=== PATIENT | female | born 1955 | race American Indian/Alaskan Native ===

== ENCOUNTER 2020-07-04 18:03 | Emergency (ER) | payer BC ==
[2020-07-04 19:05] LABS: Basophils # (Auto) 0.1 K/mm3 (0.0-0.1); Eosinophils # (Auto) 0.1 K/mm3 (0.0-0.4); Eosinophils % (Auto) 1.2 % (0.0-4.3); Hematocrit 42.5 % (30.3-42.9); Hemoglobin 13.9 gm/dl (10.1-14.3); Lymphocytes # (Auto) 3.1 K/mm3 (1.2-5.4); Lymphocytes % (Auto) 37.5 % (13.4-35.0); Mean Corpuscular HGB Conc 33 % (30-34); Mean Corpuscular Volume 85 fl (79-97); Monocytes # (Auto) 0.9 K/mm3 (0.0-0.8); Monocytes % (Auto) 10.7 % (0.0-7.3); Platelet Count 405 K/mm3 (140-440); Red Blood Count 4.99 M/mm3 (3.65-5.03); Red Cell Distribution Width 14.7 % (13.2-15.2)
[2020-07-04 19:27] LABS: Alanine Aminotransferase 16 units/L (7-56); Albumin 3.9 g/dL (3.9-5); Blood Urea Nitrogen 16 mg/dL (7-17); Calcium 9.5 mg/dL (8.4-10.2); Hemolysis Index 10
[2020-07-04 19:29] LABS: BUN/Creatinine Ratio 23
--- NOTE | 2020-07-04 19:34 | Cat Scan Report ---
CT HEAD WITHOUT CONTRAST INDICATION / CLINICAL INFORMATION: dizziness, HTN urgency. TECHNIQUE: All CT scans at this location are performed using CT dose reduction for ALARA by means of automated e xposure control. COMPARISON: None available. FINDINGS: HEMORRHAGE: No evidence of intracranial hemorrhage or extra-axial fluid collection. EXTRA-AXIAL SPACES: Cortical sulci, sylvian fissures and basilar cisterns have an unremarkable appear ance. VENTRICULAR SYSTEM: The third and lateral ventricles are of normal size and configuration. CEREBRAL PARENCHYMA: Periventricular white matter lucencies noted likely related to the presence of m icrovascular ischemic change. MIDLINE SHIFT OR HERNIATION: There is no mass effect. CEREBELLUM / BRAINSTEM: Mild cerebellar atrophy is demonstrated. Brainstem has an unremarkable appear ance. MIDLINE STRUCTURES:No abnormalities of the pituitary gland or pineal region are identified. INTRACRANIAL VESSELS:No abnormalities are identified on this noncontrast head CT. ORBITS: visualized portions of the orbits have an unremarkable appearance. Incidental note is made of calcified drusen bodies at the optic nerve insertions. SOFT TISSUES of HEAD: No significant abnormality. CALVARIUM: Evaluation of bone windows reveals no abnormalities. PARANASAL SINUSES / MASTOID AIR CELLS: Visualized portions of the paranasal sinuses are free from inf lammatory mucosal disease. Mastoid air cells are normally pneumatized. IMPRESSION: 1. No acute intracranial abnormality. Signer Name: Jorge Dalton MD Signed: 07/04/2020 7:29 PM Workstation Name: [id number]
--- NOTE | 2020-07-05 01:25 | XRay Report ---
CHEST 2 VIEWS, 07/05/2020 12:36 AM INDICATION: Chest pain COMPARISON: None FINDINGS: Support devices: None. Heart: The cardiac silhouette is normal in size. Lungs/pleura: The lungs are clear of focal airspace disease or significant pleural effusion Additional findings: No significant acute abnormality. IMPRESSION: 1. No evidence of acute cardiopulmonary process. Signer Name: Rachel Morillo MD Signed: 07/05/2020 1:21 AM Workstation Name: [id number]
--- NOTE | 2020-07-05 01:36 | Emergency Department Report ---
ED Back Pain/Injury HPI - General Chief Complaint: Dizziness Stated Complaint: DOC SENT/DIZZY Time Seen by Provider: 07/05/20 00:33 Source: patient Limitations: No Limitations - History of Present Illness Initial Comments: Dysphagia [place] female past no history of hypertension and diabetes presents emergency department complaining of fall having some issues with coryza which progressed to a dull throbbing headache which has been responsive to the medication she has been taking [id number] and not associated with occasional lightheadedness with about the episodes of presyncope today. States that she is normally relatively compliant with her medications. No palliative or or provocative factors the symptoms are transient -: Gradual, days(s) Similar Symptoms Previously: Yes Place: home Radiation: none Severity: mild Quality: dull, aching Consistency: constant Improves With: none Worsens With: other Context: other (Stress increased amount of stress due to 6 close persons dying due to COVID-19) Associated Symptoms: denies other symptoms, headaches. denies: weakness, numbness, incontinence, constipation, syncope - Related Data Previous Rx's Medication Instructions Recorded Last Taken Type traMADoL [Ultram] 50 mg PO Q4HR PRN #14 tablet 07/05/20 Unknown Rx Allergies Allergy/AdvReac Type Severity Reaction Status Date / Time Penicillins AdvReac Itching Verified 07/04/20 18:18 Sulfa (Sulfonamide AdvReac Angioedema Verified 07/04/20 18:18 Antibiotics) ED Review of Systems ROS: Stated complaint: DOC SENT/DIZZY Other details as noted in HPI Comment: All other systems reviewed and negative ED Past Medical Hx - Past Medical History Previous Medical History?: No - Surgical History Past Surgical History?: No - Social History Smoking Status: Never Smoker Substance Use Type: None - Medications Home Medications: Home Medications Medication Instructions Recorded Confirmed Last Taken Type traMADoL [Ultram] 50 mg PO Q4HR PRN #14 tablet 07/05/20 Unknown Rx ED Physical Exam - General Limitations: No Limitations General appearance: alert, in no apparent distress - Head Head exam: Present: atraumatic, normocephalic, normal inspection - Eye Eye exam: Present: normal appearance, PERRL, EOMI, nystagmus Pupils: Present: normal accommodation - ENT ENT exam: Present: normal exam, normal orophraynx, mucous membranes moist - Neck Neck exam: Present: normal inspection, full ROM - Respiratory Respiratory exam: Present: normal lung sounds bilaterally. Absent: respiratory distress, wheezes, rales, prolonged expiratory - Cardiovascular Cardiovascular Exam: Present: regular rate, normal rhythm. Absent: systolic murmur, diastolic murmur, rubs, gallop - GI/Abdominal GI/Abdominal exam: Present: soft, normal bowel sounds - Extremities Exam Extremities exam: Present: normal inspection, normal capillary refill - Back Exam Back exam: Present: normal inspection. Absent: CVA tenderness (R), CVA tenderness (L), vertebral tenderness - Neurological Exam Neurological exam: Present: alert, oriented X3, CN II-XII intact, normal gait, reflexes normal. Absent: motor sensory deficit - Psychiatric Psychiatric exam: Present: normal affect, normal mood - Skin Skin exam: Present: warm, dry, intact, normal color. Absent: rash ED Course Vital Signs 07/04/20 18:14 Temperature 98.3 F Pulse Rate 74 Respiratory 18 Rate Blood Pressure 201/103 O2 Sat by Pulse 95 Oximetry ED Medical Decision Making - Lab Data Result diagrams: 07/04/20 18:51 07/04/20 18:51 - Radiology Data Radiology results: report reviewed [address] [address] XRay Report Signed Patient: GERA MENDEZ MR# : [id number] : 1955 Acct:[id number] Age/Sex: 65 / F ADM Date: 07/04/20 Loc: ED Attending Dr: Ordering Physician: DEB MANE Date of Service: 07/05/20 Procedure(s): XR chest routine 2V Accession Number(s): [id number] cc: DEB MANE Fluoro Time In Minutes: CHEST 2 VIEWS, 07/05/2020 12:36 AM INDICATION: Chest pain COMPARISON: None FINDINGS: Support devices: None. [address] [address] Cat Scan Report Signed Patient: GERA MENDEZ MR# : [id number] : 1955 Acct:[id number] Age/Sex: 65 / F ADM Date: 07/04/20 Loc: ED Attending Dr: Ordering Physician: DEB BOWSER Date of Service: 07/04/20 Procedure(s): CT head/brain wo con Accession Number(s): [id number] cc: DEB BOWSER CT HEAD WITHOUT CONTRAST INDICATION / CLINICAL INFORMATION: dizziness, HTN urgency. TECHNIQUE: All CT scans at this location are performed using CT dose reduction for ALARA by means of automated exposure control. COMPARISON: None available. FINDINGS: HEMORRHAGE: No evidence of intracranial hemorrhage or extra-axial fluid collection. EXTRA-AXIAL SPACES: Cortical sulci, sylvian fissures and basilar cisterns have an unremarkable ap pearance. VENTRICULAR SYSTEM: The third and lateral ventricles are of normal size and configuration. CEREBRAL PARENCHYMA: Periventricular white matter lucencies noted likely related to the presence of microvascular ischemic change. MIDLINE SHIFT OR HERNIATION: There is no mass effect. CEREBELLUM / BRAINSTEM: Mild cerebellar atrophy is demonstrated. Brainstem has an unremarkable appearance. MIDLINE STRUCTURES:No abnormalities of the pituitary gland or pineal region are identified. INTRACRANIAL VESSELS:No abnormalities are identified on this noncontrast head CT. ORBITS: visualized portions of the orbits have an unremarkable appearance. Incidental note is made of calcified drusen bodies at the optic nerve insertions. SOFT TISSUES of HEAD: No significant abnormality. CALVARIUM: Evaluation of bone windows reveals no abnormalities. PARANASAL SINUSES / MASTOID AIR CELLS: Visualized portions of the paranasal sinuses are free from inflammatory mucosal disease. Mastoid air cells are normally pne umatized. IMPRESSION: 1. No acute intracranial abnormality. Signer Name: Jorge Dalton MD Signed: 07/04/2020 7:29 PM Workstation Name: [id number] Transcribed By: Dictated By: Jorge Dalton MD Electronically Authenticated By: Jorge Dalton MD Signed Date/Time: 07/04/201928 DD/ 25 TD/TT: Heart: The cardiac silhouette is normal in size. Lungs/pleura: The lungs are clear of focal airspace disease or significant pleural effusion Additional findings: No significant acute abnormality. IMPRESSION: 1. No evidence of acute cardiopulmonary process. Signer Name: Rachel Morillo MD Signed: 07/05/2020 1:21 AM Workstation Name: [id number] Transcribed By: EB Dictated By: Rachel Morillo MD Electronically Authenticated By: Rachel Morillo MD Signed Date/Time: 07/05/20120 DD/ 9 TD/TT: [facility] [address] [place] [address] Cat Scan Report Signed Patient: GERA MENDEZ MR# : [id number] : 1955 Acct:[id number] Age/Sex: 65 / F ADM Date: 07/04/20 Loc: ED Attending Dr: Ordering Physician: DEB BOWSER Date of Service: 07/04/20 Procedure(s): CT head/brain wo con Accession Number(s): [id number] cc: DEB BOWSER CT HEAD WITHOUT CONTRAST INDICATION / CLINICAL INFORMATION: dizziness, HTN urgency. TECHNIQUE: All CT scans at this location are performed using CT dose reduction for ALARA by means of automated exposure control. COMPARISON: None available. FINDINGS: HEMORRHAGE: No evidence of intracranial hemorrhage or extra-axial fluid collection. EXTRA-AXIAL SPACES: Cortical sulci, sylvian fissures and basilar cisterns have an unremarkable appearance. VENTRICULAR SYSTEM: The third and lateral ventricles are of normal size and configuration. CEREBRAL PARENCHYMA: Periventricular white matter lucencies noted likely related to the presence of microvascular ischemic change. MIDLINE SHIFT OR HERNIATION: There is no mass effect. CEREBELLUM / BRAINSTEM: Mild cerebellar atrophy is demonstrated. Brainstem has an unremarkable appearance. MIDLINE STRUCTURES:No abnormalities of the pituitary gland or pineal region are identified. INTRACRANIAL VESSELS:No abnormalities are identified on this noncontrast head CT. ORBITS: visualized portions of the orbits have an unremarkable appearance. I ncidental note is made of calcified drusen bodies at the optic nerve insertions. SOFT TISSUES of HEAD: No significant abnormality. CALVARIUM: Evaluation of bone windows reveals no abnormalities. PARANASAL SINUSES / MASTOID AIR CELLS: Visualized portions of the paranasal sinuses are free from inflammatory mucosal disease. Mastoid air cells are normally pneumatized. IMPRESSION: 1. No acute intracranial abnormality. Signer Name: Jorge Dalton MD Signed: 07/04/2020 7:29 PM Workstation Name: [id number] Transcribed By: Dictated By: Jorge Dalton MD Electronically Authenticated By: Jorge Dalton MD Signed Date/Time: 07/04/201928 DD/ 25 TD/TT: - Medical Decision Making This patient presents with a headache most consistent with tension headache. Differential diagnosis includes migraine versus tension type headache. No headache red flags. Neurologic exam without evidence of meningismus, focal neurologic findings.Based on the patient's history and physical there is very low clinical suspicion for significant intracranial pathology. The headache was NOT sudden onset, NOT maximal at onset, there are NO neurologic findings, the patient does NOT have a fever, the patient does NOT have any jaw claudication, the patient does NOT endorse a clotting disorder, patient DENIES any trauma or eye pain and the headache is NOT associated with dizziness or ataxia. Presentation not consistent with acute intracranial bleed to include SAH (lack of risk factors, headache history). Presentation not consistent with acute YARD DRIVER infection to include meningitis or brain abscess, Temporal arteritis unlikely, as is acute angle closure glaucoma given history and physical findings. Presentation not consistent with other acute, emergent causes of headache at this time. Plan to treat symptomatically with pain medication. No indication for imaging/LP at this time. Plan: pain medication, CT brain which was normal, serial reassessment. Recommend to decompress and distress environment to help cope with the headache frequency Critical care attestation.: If time is entered above; I have spent that time in minutes in the direct care of this critically ill patient, excluding procedure time. ED Disposition Clinical Impression: Cephalgia, HTN (hypertension), Dizziness Disposition: DC-01 TO HOME OR SELFCARE Is pt being admited?: No Does the pt Need Aspirin: No Condition: Stable Instructions: Hypertension (ED), Dizziness, Hypertension, Adult, [id number], Managing Your Hypertension, Stress, Adult Prescriptions: traMADoL [Ultram] 50 mg PO Q4HR PRN #14 tablet PRN Reason: Pain Referrals: PRIMARY CARE, [Primary Care Provider] - 3-5 Days BURKE FONTENOT MD [Staff Physician] - 3-5 Days
[2020-07-05] MEDS ORDERED: cloNIDine 0.2 MG TAB PO STA (02:14)
[2020-07-05 05:43] VITALS: BP 152/75
== END 2020-07-05 04:10 | disposition home or self-care (01) ==
LOC: EDBD → ED 18:03
DX: I10 Essential (primary) hypertension (principal); R42 Dizziness and giddiness; Z79.899 Other long term (current) drug therapy; Z88.0 Allergy status to penicillin; Z88.2 Allergy status to sulfonamides
CPT/HCPCS: 36415; 70450; 71046; 80053; 82550; 82962; 83735; 84484; 85025; 93005